=== PATIENT | female | born 1980 | race American Indian/Alaskan Native ===

== ENCOUNTER 2019-10-25 22:59 | Emergency (ER) | payer SELFPAY ==
[2019-10-25] MEDS ORDERED: HYDROmorphone 1 MG/ML Syringe IVPUSH ONE (23:14)
[2019-10-25] MEDS ORDERED: Ondansetron 4 MG/2 ML SDV IVPUSH ONE (23:14)
[2019-10-25 23:18] VITALS: BP 149/115; PULSE 119
[2019-10-25] MEDS ORDERED: Piperacillin/Tazobactam 3.375 GM in Sodium Chloride 0.9% 100 ML IV ONE (23:46)
--- NOTE | 2019-10-25 23:58 | EDM.PDOC ---
ED HPI GENERAL MEDICAL PROBLEM - General Chief Complaint: Skin Complaint Stated Complaint: SEIZURE Time Seen by Provider: 10/25/19 23:15 Source of Information: Reports: Patient, RN History Limitations: Reports: No Limitations - History of Present Illness INITIAL COMMENTS - FREE TEXT/NARRATIVE: ED with report of hit in right breast 2 weeks ago with softball, Increased pain tonight and "kids made her come". Has had chills unknown if fever. Large amount of drainage tonight when removing bra. Admits due to pain has not had bra off for 2-3 days. 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 ED EXAM, SKIN/RASH Exam: See Below Exam Limited By: No Limitations General Appearance: Alert, Obese Ears: Normal External Exam, Hearing Grossly Normal, Normal TMs Nose: Normal Inspection Throat/Mouth: Normal Inspection Head: Atraumatic, Normocephalic Neck: Full Range of Motion Respiratory/Chest: No Respiratory Distress, Crackles (right base greater than left, clear with cough), Other (right breast red warmth large 3x2 blistered area, sloughing, brown thick purulent drainage, 3x 5 dark red / blackish area above nippele) Cardiovascular: Normal Peripheral Pulses, Regular Rate, Rhythm, Tachycardia GI/Abdominal: Normal Bowel Sounds (Female) Exam: Normal External Exam Back Exam: Normal Inspection Neurological: Alert, Oriented Psychiatric: Anxious Skin: Warm, Dry, Intact, Normal Color Location, Skin: Other (right breast) Characteristics: Bullous, Necrotic Associated features: Warmth, Tenderness, Swelling, Induration, Weeping (brown thick drainage.) Course - Vital Signs Last Recorded V/S: Last Vital Signs Temp 98.8 F 10/25/19 23:13 Pulse 119 H 10/25/19 23:13 Resp 22 H 10/25/19 23:13 BP 149/115 H 10/25/19 23:13 Pulse Ox 100 10/25/19 23:13 - Orders/Labs/Meds Orders: Active Orders 24 hr Category Date Time Status CULTURE WOUND [RM] Stat Lab 10/25/19 23:10 Received Blood Culture x2 Reflex Set [OM.PC] Stat Oth 10/25/19 23:14 Ordered Labs: Laboratory Tests 10/26/19 10/26/19 10/26/19 Range/Units 00:15 00:20 00:23 WBC 11.8 H (5.0-10.0) 10^3/uL RBC 4.49 (4.2-5.4) 10^6/uL Hgb 12.9 D (12.0-16.0) g/dL Hct 39.5 (37.0-47.0) % MCV 88.0 (80-100) fL MCH 28.7 (27.0-34.0) pg MCHC 32.7 L (33.0-35.0) g/dL Plt Count 312 (150-450) 10^3/uL Neut % (Auto) 75.3 H (42.2-75.2) % Lymph % (Auto) 14.4 L (20.5-50.1) % Evangeline % (Auto) 8.4 H (2-8) % Eos % (Auto) 1.7 (1.0-3.0) % Baso % (Auto) 0.2 (0.0-1.0) % Creatinine 0.39 L (0.55-1.02) mg/dL Est Cr Clr Drug Dosing 192.06 mL/min Estimated GFR (MDRD) > 60 Urine Color Yellow (YELLOW) Urine Appearance Slightly cloudy (CLEAR) Urine pH 8.0 (5.0-9.0) Ur Specific Nicholson 1.020 (1.005-1.030) Urine Protein Negative (NEGATIVE) Urine Glucose (UA) Negative (NEGATIVE) Urine Ketones Negative (NEGATIVE) Urine Occult Blood Moderate H (NEGATIVE) Urine Nitrite Negative (NEGATIVE) Urine Bilirubin Negative (NEGATIVE) Urine Urobilinogen 1.0 (0.2-1.0) mg/dL Ur Leukocyte Esterase Negative (NEGATIVE) Urine RBC 5-10 H /HPF Urine WBC 0-5 (0-5/HPF) /HPF Ur Epithelial Cells Moderate H (NOT SEEN) /HPF Amorphous Sediment Few (NOT SEEN) /HPF Urine Bacteria Few (0-FEW/HPF) /HPF Urine Mucus Rare (NOT SEEN) /LPF Urine HCG, Qual Urine Opiates Screen (NEGATIVE) Ur Oxycodone Screen (NEGATIVE) Urine Methadone Screen (NEGATIVE) Ur Barbiturates Screen (NEGATIVE) U Tricyclic Antidepress (NEGATIVE) Ur Phencyclidine Scrn (NEGATIVE) Ur Amphetamine Screen (NEGATIVE) U Methamphetamines Scrn (NEGATIVE) Urine MDMA Screen (NEGATIVE) U Benzodiazepines Scrn (NEGATIVE) Urine Cocaine Screen (NEGATIVE) U Marijuana (THC) Screen (NEGATIVE) COVID-19 (MARILYN) (NEGATIVE) 10/26/19 10/26/19 10/26/19 Range/Units 00:23 00:23 01:18 WBC (5.0-10.0) 10^3/uL RBC (4.2-5.4) 10^6/uL Hgb (12.0-16.0) g/dL Hct (37.0-47.0) % MCV (80-100) fL MCH (27.0-34.0) pg MCHC (33.0-35.0) g/dL Plt Count (150-450) 10^3/uL Neut % (Auto) (42.2-75.2) % Lymph % (Auto) (20.5-50.1) % Evangeline % (Auto) (2-8) % Eos % (Auto) (1.0-3.0) % Baso % (Auto) (0.0-1.0) % Creatinine (0.55-1.02) mg/dL Est Cr Clr Drug Dosing mL/min Estimated GFR (MDRD) Urine Color (YELLOW) Urine Appearance (CLEAR) Urine pH (5.0-9.0) Ur Specific Nicholson (1.005-1.030) Urine Protein (NEGATIVE) Urine Glucose (UA) (NEGATIVE) Urine Ketones (NEGATIVE) Urine Occult Blood (NEGATIVE) Urine Nitrite (NEGATIVE) Urine Bilirubin (NEGATIVE) Urine Urobilinogen (0.2-1.0) mg/dL Ur Leukocyte Esterase (NEGATIVE) Urine RBC /HPF Urine WBC (0-5/HPF) /HPF Ur Epithelial Cells (NOT SEEN) /HPF Amorphous Sediment (NOT SEEN) /HPF Urine Bacteria (0-FEW/HPF) /HPF Urine Mucus (NOT SEEN) /LPF Urine HCG, Qual Negative Urine Opiates Screen Negative (NEGATIVE) Ur Oxycodone Screen Negative (NEGATIVE) Urine Methadone Screen Negative (NEGATIVE) Ur Barbiturates Screen Negative (NEGATIVE) U Tricyclic Antidepress Negative (NEGATIVE) Ur Phencyclidine Scrn Negative (NEGATIVE) Ur Amphetamine Screen Negative (NEGATIVE) U Methamphetamines Scrn Positive H (NEGATIVE) Urine MDMA Screen Negative (NEGATIVE) U Benzodiazepines Scrn Negative (NEGATIVE) Urine Cocaine Screen Negative (NEGATIVE) U Marijuana (THC) Screen Negative (NEGATIVE) COVID-19 (MARILYN) Negative (NEGATIVE) Meds: Medications Discontinued Medications Generic Name Dose Route Start Last Admin Trade Name Freq PRN Reason Stop Dose Admin Hydromorphone HCl 1 mg 10/25/19 23:14 10/25/19 23:49 Dilaudid IVPUSH 10/25/19 23:15 1 mg ONETIME ONE Administration Hydromorphone HCl 1 mg 10/26/19 01:53 10/26/19 01:59 Dilaudid IVPUSH 10/26/19 01:54 1 mg ONETIME ONE Administration Piperacillin Sod/Tazobactam 100 mls @ 200 mls/hr 10/25/19 23:46 10/26/19 00:35 Sod 3.375 gm/ Sodium Chloride IV 10/26/19 00:15 200 mls/hr ONETIME ONE Administration Vancomycin HCl 1,500 mg/ 500 mls @ 333.333 mls/hr 10/25/19 23:46 10/26/19 01:15 Sodium Chloride IV 10/26/19 01:15 333.333 mls/hr ONETIME ONE Administration Sodium Chloride 1,000 mls @ 999 mls/hr 10/26/19 00:37 10/26/19 00:47 Normal Saline IV 10/26/19 01:37 999 mls/hr .BOLUS ONE Administration Iopamidol 100 ml 10/26/19 01:54 10/26/19 01:56 Isovue-300 (61%) IVPUSH 10/26/19 01:55 75 ml ONETIME ONE Administration Ondansetron HCl 4 mg 10/25/19 23:14 10/25/19 23:49 Zofran IVPUSH 10/25/19 23:15 4 mg ONETIME ONE Administration - Re-Assessments/Exams Free Text/Narrative Re-Assessment/Exam: 10/26/19 04:10 Dr Cruz accepting patient. Tx via [facility]. Difficult IV and lab draw. Unable to obtain chemistry o rserum cultures prior to initiating antibiotic. Departure - Departure Time of Disposition: 03:20 Disposition: DC/Tfer to Acute Hospital 02 Condition: Fair Clinical Impression: Abscess, Mastitis Sepsis Qualifiers: Sepsis type: sepsis due to unspecified organism Sepsis acute organ dysfunction status: unspecified Qualified Code(s): A41.9 - Sepsis, unspecified organism - Discharge Information *PRESCRIPTION DRUG MONITORING PROGRAM REVIEWED*: No *COPY OF PRESCRIPTION DRUG MONITORING REPORT IN PATIENT JYOTI: No Referrals: PCP,Unobtain [Primary Care Provider] - Forms: ED Department Discharge Sepsis Event Note (ED) - Evaluation Sepsis Screening Result: Possible Sepsis Risk - Focused Exam Vital Signs: Vital Signs Temp Pulse Resp BP Pulse Ox 10/25/19 23:13 98.8 F 119 H 22 H 149/115 H 100 - My Orders Last 24 Hours: My Active Orders 10/25/19 23:10 CULTURE WOUND [RM] Stat 10/25/19 23:14 Blood Culture x2 Reflex Set [OM.PC] Stat - Assessment/Plan Last 24 Hours: My Active Orders 10/25/19 23:10 CULTURE WOUND [RM] Stat 10/25/19 23:14 Blood Culture x2 Reflex Set [OM.PC] Stat
[2019-10-26] MEDS ORDERED: Sodium Chloride 0.9% 1,000 ML IV ONE (00:37)
[2019-10-26] MEDS ORDERED: HYDROmorphone 1 MG/ML Syringe IVPUSH ONE (01:53)
[2019-10-26] MEDS ORDERED: Iopamidol 612 MG/ML 100 ML Bottle IVPUSH ONE (01:54)
--- NOTE | 2019-10-26 02:23 | CT ---
PROCEDURE INFORMATION: Exam: CT Chest With Contrast Exam date and time: 10/26/2019 1:28 AM Age: 39 years old Clinical indication: Other: RT breast pain swelling and wound draining; Additional info: Right breast wound draining TECHNIQUE: Imaging protocol: Computed tomography of the chest with intravenous contrast. Radiation optimization: All CT scans at this facility use at least one of these dose optimization techniques: automated exposure control; mA and/or kV adjustment per patient size (includes targeted exams where dose is matched to clinical indication); or iterative reconstruction. Contrast material: ISOVUE 300; Contrast volume: 75 ml; Contrast route: INTRAVENOUS (IV); COMPARISON: CR CHEST PA/LAT 06/08/2008 3:19 PM FINDINGS: Thyroid: There is a hypodense lesion within an enlarged right lobe of the thyroid gland. The lesion demonstrates a component of wall irregularity, and measures approximately 2.7 cm AP by 3.3 cm transverse dimensions. The lesion contains mild hyperattenuation foci, that may represent calcifications. There is a 1.1 x 1.2 cm hypodense lesion involving the left lobe of the thyroid gland. The differential diagnosis for the thyroid gland lesions includes cyst or nodule. Lungs: There are foci of mild atelectasis involving both lungs. Mild emphysema is present in the upper lobes. Pleural space: Unremarkable. No pneumothorax. No pleural effusion. Heart: Unremarkable. No cardiomegaly. No pericardial effusion. Aorta: Unremarkable. No aortic aneurysm. Lymph nodes: Enlarged right axillary lymph node, measuring 1.7 x 1.2 cm. This is a nonspecific finding. There is an enlarged right axillary lymph node that measures 1.8 x 1.2 cm. The hilum is diffusely fatty. This is suggestive of a benign process. Gallbladder and bile ducts: A calcified gallstone is present. Bones/joints: There are degenerative changes involving the spine. Evidence of a prior right thoracotomy. Soft tissues: There is severe, diffuse skin thickening involving the right breast. Moderate to severe diffuse stranding is present in the right breast. A right breast abscess is not identified. The right breast stranding extends medially, to the midline/left paracentral aspect of the anterior subcutaneous fat. There is a focus of hypodensity involving the anterior/lower aspect of the right hemithorax, just caudal to the right breast, measuring 1.8 cm AP x 2.1 cm transverse dimensions. There is an isodense right breast mass, that measures up to 1.2 x 1.0 cm. It is present in the inner aspect of the right breast. IMPRESSION: 1. Diffuse skin thickening involving the right breast. There is moderate to severe diffuse stranding within the right breast, consistent with inflammation and/or edema. The findings in the right breast could be due to mastitis. The differential diagnosis includes inflammatory carcinoma with diffuse, local spread. There is a 1.2 x 1.0 cm right breast mass. This finding may represent intramammary lymph node, fibroadenoma, or well-circumscribed carcinoma. 2. 2.1 x 1.8 cm focus of hypodensity involving the subcutaneous fat of the anterior/caudal aspect of the right hemithorax. This finding is just below the right breast. It may represent a site of inflammation. 3. Mild emphysema. COMMENTS: Consistent with the [employer]'s Incidental Findings Committee white paper (J Am Damon Radiol 2015): In patients aged 35 years and older with an incidental thyroid nodule equal to or greater than 1.[address], MRI or extrathyroidal US, further evaluation with dedicated thyroid US is recommended for patients with normal life expectancy and without comorbidities. For smaller nodules without suspicious features, no further evaluation or follow up is recommended.
== END 2019-10-26 03:08 ==
LOC: DL.ED 22:59
DX: A41.9 Sepsis, unspecified organism (principal); N61.1 Abscess of the breast and nipple; F17.210 Nicotine dependence, cigarettes, uncomplicated; Z20.828 Contact with and (suspected) exposure to other viral communicable diseases
CPT/HCPCS: 36415; 71260; 80305-QW; 81001; 81025; 82565; 85025; 87070; 96365; 96366; 96367; 96375; 96376; 99284; 99285-25; J1170; J2405; J2543; J3370; J7030; J7040; J7050; Q9967; U0002

== ENCOUNTER 2020-08-14 14:19 | Emergency (ER) | payer MEDICAID, OTHER ==
[2020-08-14 14:36] VITALS: BP 169/97; PULSE 110
[2020-08-14] MEDS ORDERED: Sodium Chloride 0.9% 1,000 ML IV ONE (14:38)
[2020-08-14] MEDS ORDERED: Sodium Chloride 0.9% 10 ML Syringe FLUSH PRN (14:38)
--- NOTE | 2020-08-14 14:38 | EDM.PDOC ---
ED HPI GENERAL MEDICAL PROBLEM - General Chief Complaint: Skin Complaint Stated Complaint: INFECTION IN HAND SPREADING TO ARM Time Seen by Provider: 08/14/20 14:37 Source of Information: Reports: Patient, Old Records, RN, RN Notes Reviewed History Limitations: Reports: No Limitations - History of Present Illness INITIAL COMMENTS - FREE TEXT/NARRATIVE: Pt presents to ED via POV with c/o left hand infection. Pt states she had a hang nail a few days go on the 3rd and 4th fingers. Pt states she has been soaking her hand in H202. Denies fever/chills. Admits to some purulent drainage from the cuticles of both fingers and redness spreading up the dorsum of the left hand. 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 ED EXAM, SKIN/RASH Exam: See Below Exam Limited By: No Limitations General Appearance: Alert, WD/WN, No Apparent Distress, Obese Nose: Normal Inspection Throat/Mouth: Normal Inspection Head: Atraumatic, Normocephalic Neck: Normal Inspection Respiratory/Chest: No Respiratory Distress, Lungs Clear, Normal Breath Sounds, No Accessory Muscle Use, Chest Non-Tender Cardiovascular: Regular Rate, Rhythm, Tachycardia Peripheral Pulses: 3+: Radial (L), Radial (R) Extremities: Normal Range of Motion, Normal Capillary Refill, Redness (Left 3rd and 4th fingers with spread to dorsal left hand). No: Joint Swelling Neurological: Alert, Oriented, No Motor/Sensory Deficits Psychiatric: Normal Mood Skin: Warm, Dry, Erythema, Increased Warmth Location, Skin: Upper Extremity, Left Course - Vital Signs Last Recorded V/S: Last Vital Signs Temp 98 F 08/14/20 14:27 Pulse 110 H 08/14/20 14:27 Resp 16 08/14/20 14:27 BP 169/97 H 08/14/20 14:27 Pulse Ox 100 08/14/20 14:27 - Orders/Labs/Meds Orders: Active Orders 24 hr Category Date Time Status Peripheral IV Care [RC] . DIRECTED Care 08/14/20 14:38 Active CULTURE BLOOD [BC] Stat Lab 08/14/20 15:05 Results CULTURE BLOOD [BC] Stat Lab 08/14/20 16:22 Results CULTURE WOUND [RM] Stat Lab 08/14/20 14:25 Received Sodium Chloride 0.9% [Saline Flush] Med 08/14/20 14:38 Active 10 ml FLUSH ASDIRECTED PRN Blood Culture x2 Reflex Set [OM.PC] Stat Oth 08/14/20 14:38 Ordered Peripheral IV Insertion Adult [OM.PC] Stat Oth 08/14/20 14:38 Ordered Medication Orders Sodium Chloride (Sodium Chloride 0.9% 10 Ml Syringe) 10 ml FLUSH ASDIRECTED PRN PRN Reason: Keep Vein Open Last Admin: 08/14/20 15:27 Dose: 10 ml Documented by: AKIL Labs: Laboratory Tests 08/14/20 08/14/20 08/14/20 Range/Units 15:05 15:05 15:05 WBC 6.3 (5.0-10.0) 10^3/uL RBC 4.42 (4.2-5.4) 10^6/uL Hgb 12.7 (12.0-16.0) g/dL Hct 38.4 (37.0-47.0) % MCV 86.9 (80-100) fL MCH 28.7 (27.0-34.0) pg MCHC 33.1 (33.0-35.0) g/dL Plt Count 356 (150-450) 10^3/uL Neut % (Auto) 70.9 (42.2-75.2) % Lymph % (Auto) 17.4 L (20.5-50.1) % Jackson % (Auto) 8.9 H (2-8) % Eos % (Auto) 2.5 (1.0-3.0) % Baso % (Auto) 0.3 (0.0-1.0) % Sodium 138 (136-145) mmol/L Potassium 3.8 (3.5-5.1) mmol/L Chloride 104 (98-107) mmol/L Carbon Dioxide 26 (21-32) mmol/L Anion Gap 11.8 (7-13) mEq/L BUN 7 (7-18) mg/dL Creatinine 0.70 (0.55-1.02) mg/dL Est Cr Clr Drug Dosing 107.00 mL/min Estimated GFR (MDRD) > 60 BUN/Creatinine Ratio 10.0 (No establ ref range) Glucose 93 (70-99) mg/dL Lactic Acid 0.4 (0.4-2.0) mmol/L Calcium 8.0 L (8.5-10.1) mg/dL Total Bilirubin 0.5 (0.2-1.0) mg/dL AST 17 (15-37) U/L ALT 26 (14-59) U/L Alkaline Phosphatase 61 (46-116) U/L C-Reactive Protein 1.2 H (0.0-0.9) mg/dL Total Protein 7.0 (6.4-8.2) g/dL Albumin 3.1 L (3.4-5.0) g/dL Globulin 3.9 Albumin/Globulin Ratio 0.79 Meds: Medications Generic Name Dose Route Start Last Admin Trade Name Freq PRN Reason Stop Dose Admin Sodium Chloride 10 ml 08/14/20 14:38 08/14/20 15:27 Sodium Chloride 0.9% 10 Ml Syringe FLUSH 10 ml ASDIRECTED PRN Administration Keep Vein Open Discontinued Medications Generic Name Dose Route Start Last Admin Trade Name Freq PRN Reason Stop Dose Admin Acetaminophen 650 mg 08/14/20 15:59 08/14/20 16:04 Acetaminophen 325 Mg Tab PO 08/14/20 16:00 650 mg NOW ONE Administration Bacitracin 1 dose 08/14/20 15:59 08/14/20 16:04 Bacitracin Oint 1 Gm U/D Packet TOP 08/14/20 16:00 1 dose ONETIME ONE Administration Diphenhydramine HCl 25 mg 08/14/20 14:40 08/14/20 15:26 Diphenhydramine 50 Mg/Ml Sdv IVPUSH 08/14/20 14:41 25 mg ONETIME ONE Administration Sodium Chloride 1,000 mls @ 999 mls/hr 08/14/20 14:38 08/14/20 15:25 Normal Saline IV 08/14/20 15:38 999 mls/hr .BOLUS ONE Administration Vancomycin HCl 1,500 mg/ 500 mls @ 333.333 mls/hr 08/14/20 14:39 08/14/20 15:25 Sodium Chloride IV 08/14/20 16:08 333.333 mls/hr ONETIME ONE Administration Ketorolac Tromethamine 30 mg 08/14/20 15:59 08/14/20 16:04 Ketorolac 30 Mg/Ml Sdv IVPUSH 08/14/20 16:00 30 mg ONETIME ONE Administration Lidocaine HCl Confirm 08/14/20 14:55 08/14/20 15:27 Lidocaine 2% Viscous Solution 15 Ml Cup Administered 08/14/20 14:56 15 ml Dose Administration 15 ml .ROUTE .STK-MED ONE Lidocaine HCl 15 ml 08/14/20 15:54 08/14/20 15:55 Lidocaine 2% Viscous Solution 15 Ml Cup PO 08/14/20 15:55 Not Given ONETIME ONE Departure - Departure Time of Disposition: 17:14 Disposition: Home, Self-Care 01 Condition: Good Clinical Impression: Cellulitis of left hand - Discharge Information *PRESCRIPTION DRUG MONITORING PROGRAM REVIEWED*: Not Applicable *COPY OF PRESCRIPTION DRUG MONITORING REPORT IN PATIENT JYOTI: Not Applicable Instructions: Cellulitis, Adult Forms: ED Department Discharge Additional Instructions: Rx: Clindamycin 300mg Rx: Doxycycline 100mg Rx: Bactroban (Mupirocin) Ointment 2% Follow up in clinic in 2 days for recheck. Return to ER if worse at any time. Sepsis Event Note (ED) - Evaluation Sepsis Screening Result: No Definite Risk - Focused Exam Vital Signs: Vital Signs Temp Pulse Resp BP Pulse Ox 08/14/20 14:27 98 F 110 H 16 169/97 H 100 - My Orders Last 24 Hours: My Active Orders 08/14/20 14:25 CULTURE WOUND [RM] Stat 08/14/20 14:38 Peripheral IV Care [RC] . DIRECTED Sodium Chloride 0.9% [Saline Flush] 10 ml FLUSH ASDIRECTED PRN Blood Culture x2 Reflex Set [OM.PC] Stat Peripheral IV Insertion Adult [OM.PC] Stat 08/14/20 15:05 CULTURE BLOOD [BC] Stat 08/14/20 16:22 CULTURE BLOOD [BC] Stat - Assessment/Plan Last 24 Hours: My Active Orders 08/14/20 14:25 CULTURE WOUND [RM] Stat 08/14/20 14:38 Peripheral IV Care [RC] . DIRECTED Sodium Chloride 0.9% [Saline Flush] 10 ml FLUSH ASDIRECTED PRN Blood Culture x2 Reflex Set [OM.PC] Stat Peripheral IV Insertion Adult [OM.PC] Stat 08/14/20 15:05 CULTURE BLOOD [BC] Stat 08/14/20 16:22 CULTURE BLOOD [BC] Stat
[2020-08-14] MEDS ORDERED: diphenhydrAMINE 50 MG/ML SDV IVPUSH ONE (14:40)
[2020-08-14] MEDS ORDERED: Lidocaine 2% Viscous Solution 15 ML Cup ONE (14:55)
[2020-08-14 15:33] LABS: ANION GAP 11.8 mEq/L (7-13); CHLORIDE,CL 104 mmol/L (98-107); SODIUM,NA 138 mmol/L (136-145)
[2020-08-14] MEDS ORDERED: Lidocaine 2% Viscous Solution 15 ML Cup PO ONE (15:54)
[2020-08-14] MEDS ORDERED: Bacitracin Oint 1 GM U/D Packet TOP ONE (15:59)
[2020-08-14] MEDS ORDERED: Acetaminophen 325 MG Tab PO ONE (15:59)
[2020-08-14] MEDS ORDERED: Ketorolac 30 MG/ML SDV IVPUSH ONE (15:59)
== END 2020-08-14 17:25 | disposition home or self-care (01) ==
LOC: DL.ED 14:19
DX: L03.012 Cellulitis of left finger (principal); Z72.0 Tobacco use
CPT/HCPCS: 36415; 80053; 83605; 85025; 86140; 87040; 87070; 87077; 87186; 96365; 96366; 96375; 99283; 99284-25; A9270-GY; J1200; J1885; J3370; J7030; J7040

== ENCOUNTER 2022-06-28 18:07 | Emergency (ER) | payer MEDICAID ==
[2022-06-28 21:30] LABS: ANION GAP 10.6 mEq/L (7-13)
[2022-06-28] MEDS ORDERED: Piperacillin/Tazobactam 3.375 GM in Sodium Chloride 0.9% 100 ML IV ONE (23:23)
[2022-06-28] MEDS ORDERED: fentaNYL 100 MCG/2 ML SDV IVPUSH ONE (23:23)
[2022-06-29] MEDS ORDERED: fentaNYL 100 MCG/2 ML SDV IVPUSH ONE (01:45)
[2022-06-29 02:35] VITALS: BP 139/123; PULSE 96
== END 2022-06-29 02:34 ==
LOC: DL.ED 18:07
DX: L97.922 Non-pressure chronic ulcer of unspecified part of left lower leg with fat layer exposed (principal)
CPT/HCPCS: 36415; 73590; 80053; 85025; 96365; 96375; 96376; 99284; J2543; J3010; J7050